=== PATIENT | male | born 1950 | race Caucasian/White ===

== ENCOUNTER → 2021-07-29 13:41 | Outpatient (BNVA) | payer MEDICARE, SELFPAY | PROVIDERS: PCP Hospitalist; Visit Provider Urology | DX: N32.0 Bladder-neck obstruction (principal) | CPT/HCPCS: 51798; 99212 ==

== ENCOUNTER 2022-01-14 14:07 | Emergency (ER) | payer MEDICARE, SELFPAY | END 2022-01-14 20:48 | disposition left against medical advice (07) | PROVIDERS: Emergency Provider Emergency Medicine; PCP Hospitalist | DX: M79.646 Pain in unspecified finger(s) (principal) ==

== ENCOUNTER 2022-07-22 10:48 | Outpatient (REF) | payer MEDICARE, SELFPAY ==
[2022-07-22 13:01] LABS: Prostate Specific Antigen 3.33 ng/mL (<0.05-4.0)
== END 2022-07-22 10:49 | disposition home or self-care (01) ==
LOC: HO.LAB 10:48
PROVIDERS: PCP Hospitalist; Visit Provider Urology
DX: Z12.5 Encounter for screening for malignant neoplasm of prostate (principal); N13.8 Other obstructive and reflux uropathy; N40.1 Benign prostatic hyperplasia with lower urinary tract symptoms
CPT/HCPCS: 36415; 84153

== ENCOUNTER → 2022-07-30 08:29 | Outpatient (BNVA) | payer MEDICARE, SELFPAY | PROVIDERS: PCP Hospitalist; Visit Provider Urology | DX: N32.0 Bladder-neck obstruction (principal); R31.29 Other microscopic hematuria | CPT/HCPCS: 51798; 99212 ==

== ENCOUNTER 2022-12-17 11:12 | Outpatient (AMB) | payer MEDICARE, SELFPAY ==
--- NOTE | 2022-12-17 11:12 | MHC.OFFVIS ---
Intake Intake Visit Reasons: PVR follow Up (Pt having issues) Intake Note: Patient is present for PSA Results: 07/22/22- PSA: 3.33 Urology Med: Tamsulosin Antibiotic Allergy: None Blood Thinner: None PVR:0 Residential Property Tax Appraiser Required: No Accompanied by: Self / Same As Patient Allergies No Known Allergies Allergy (Verified 12/17/22 11:15) Medication List - Last Reconciled 12/17/22 by Landon Kaur MD citalopram 20 mg PO DAILY terazosin 5 mg PO BEDTIME 30 days HPI HPI Comments History of Present Illness Details Chiki DISLA is a very pleasant male. He is patient of Dr Zapata. He is seen today for the following urologic conditions. - lower urinary tract symptoms - microscopic hematuria SHEKHAR 1+ No evidence of microscopic hematuria today Progressive lower urinary tract symptoms - minimal nocturia, primarily storage related with urgency Switched to 5 mg terazosin. Bladder ultrasound. Cystoscopy. Microscopic Hematuria:?No evidence of microscopic hematuria currently. ? Microscopic hematuria was diagnosed during?routine UA.? They are here for the?cystoscopy and discussion of imaging findings.? Since the last visit the patient has?continues to test postive for microscopic hematuria, has not noticed gross hematuria.? Relevant medical history for?no pertinent medical history.? Radiographic imaging:?August 2018 ultrasound normal kidneys. Enlarged prostate.? Other investigations?September 2018 cytology normal.? Cystoscopy findings?September 2018 trabeculation with bladder neck tightening.? Therapeutic plan?Continue with medications ?See in 12 months.? Lower Urinary Tract Symptoms:? Current visit is for?further evaluation of, lower urinary tract symptoms, predominate obstructive symptoms.? Current therapy tamsulosin ? PSA?06/01 2.5, 08/04 3.3 PFSH Medical History Benign prostatic hyperplasia with lower urinary tract symptoms Poor urinary stream Microscopic hematuria Review of Systems Const Denies chills and Denies fever(s) Card Reports no additional complaints and Denies syncope Resp Denies cough GI Denies abdominal pain and Denies heartburn Reports as per HPI and Denies change in libido Neuro Denies syncope Psych Denies change in libido Endo Denies change in libido Physical Exam Const General: cooperative, healthy appearing, comfortable and no acute distress Orientation/consciousness: patient oriented x3 HEENT Face and sinus: Yes normal facial exam Mouth: moist mucous membranes Neck Neck: Yes normal visual inspection, Yes full ROM and Yes trachea midline Chest Chest palpation & inspection: normal inspection of the chest Resp Effort & Inspection: normal respiratory effort, able to speak in complete sentences and no respiratory distress GI Inspection: Yes normal to inspection Back/Spine/Pelvis Cervical Spine: normal cervical lordosis Thoracic/Lumbar Spine: thoracic and lumbar spine normal to inspection Skin General skin exam: no rashes or lesions noted Neuro General: patient oriented x3, gait normal, tone normal and moves all extremities Extrem General: Yes normal to inspection and Yes capillary refill normal Office Procedures Post Void Residual Post Residual Void Post Void Residual (PVR): 0 14456-Huqd Void Residual by ultrasound Results AMB Urinalysis, Automated UA Leukoctes 0 Orly/uL Last Edit by DONNA Castillo on 12/17/22 11:24 UA Nitrite Negative Last Edit by DONNA Castillo on 12/17/22 11:24 UA Urobilinogen 0.2 mg/dL Last Edit by DONNA Castillo on 12/17/22 11:24 UA Protein 0 mg/dL Last Edit by DONNA Castillo on 12/17/22 11:24 UA pH 7.0 Last Edit by DONNA Castillo on 12/17/22 11:24 UA Blood 0 Carlos Enrique/uL Last Edit by DONNA Castillo on 12/17/22 11:24 UA Specific [place] 1.010 Last Edit by DONNA Castillo on 12/17/22 11:24 UA Ketone Negative Last Edit by DONNA Castillo on 12/17/22 11:24 UA Bilirubin 0 mg/dL Last Edit by DONNA Castillo on 12/17/22 11:24 UA Glucose 0 mg/dL Last Edit by DONNA Castillo on 12/17/22 11:24 Results Reviewed Results Reviewed: Laboratory Last Values Urine pH (Auto) 7.0 12/17/22 11:20 Specific [place] (Auto) 1.010 12/17/22 11:20 Urine Protein (Auto) 0 mg/dL 12/17/22 11:20 Glucose (UA)(Auto) 0 mg/dL 12/17/22 11:20 Urine Ketones (Auto) Negative 12/17/22 11:20 Urine Blood (Auto) 0 Carlos Enrique/uL 12/17/22 11:20 Urine Nitrite (Auto) Negative 12/17/22 11:20 Urine Bilirubin (Auto) 0 mg/dL 12/17/22 11:20 Urine Urobilinogen (Auto) 0.2 mg/dL 12/17/22 11:20 Leukocyte Esterase (Auto) 0 Orly/uL 12/17/22 11:20 Assessment & Plan Assessment & Plan (1) Bladder outlet obstruction: Code(s): N32.0 - Bladder-neck obstruction Plan Two month follow-up cysto Orders: Orders AMB Urinalysis Automated Today Z13.9 - Encounter for screening, unspecified AMB Post Void Residual by ultrasound Today N39.8 - Other specified disorders of urinary system US bladder Today N32.0 - Bladder-neck obstruction, R39.12 - Poor urinary stream Medications: New terazosin 5 mg PO BEDTIME 30 caps 1RF 30 days N32.0 - Bladder-neck obstruction, N40.1 - Benign prostatic hyperplasia with lower urinary tract symptoms, R35.0 - Frequency of micturition Discontinued tamsulosin Discontinued Reason: Doctor's Order 0.4 mg PO DAILY 90 days 90 caps 3RF Patient Instructions: Imaging studies, laboratory and physical exam results were discussed and reviewed in detail. No major barriers to patient understanding were identified. An opportunity to ask questions regarding the treatment plan was provided. All questions were answered. The patient expressed understanding and agreement with the above treatment plan. The patient is aware they should contact our office by phone for worsening of their current condition or the appearance of new urologic symptoms. Compliance is encouraged with any medications and followup testing that is ordered. It is a privilege to participate in the urologic care of your patient. If you have any questions or concerns regarding treatment for the above conditions, or other urologic issues, please do not hesitate to contact me. The office telephone contact is [phone]. This note is constructed using voice recognition software. While every effort has been made to ensure accuracy account resolution analyst errors may have been included. Yours sincerely, Dr Landon Kaur MD, HAR[facility] - Urology Providers of Expert, Compassionate Care for the Genitourinary System Coding Level of Care Code Est Pt Level 4 (20995) Diagnoses Bladder outlet obstruction N32.0 CPT Codes Post Residual Void - PVR CPT Code: 62068-Cgfd Void Residual by ultrasound ([id number])
== END 2022-12-17 12:06 | disposition home or self-care (01) ==
PROVIDERS: PCP Hospitalist; Visit Provider Urology
DX: N32.0 Bladder-neck obstruction (principal); Z13.9 Encounter for screening, unspecified
CPT/HCPCS: 99214

== ENCOUNTER → 2022-12-17 11:12 | Outpatient (BNVA) | payer MEDICARE, SELFPAY | PROVIDERS: PCP Hospitalist; Visit Provider Urology | DX: N32.0 Bladder-neck obstruction (principal) | CPT/HCPCS: 51798; 81003; 99212 ==

== ENCOUNTER 2023-01-14 12:33 | Outpatient (REF) | payer MEDICARE, SELFPAY ==
--- NOTE | ~2023-01-14 | US_ITS ---
EXAMINATION: US PELVIS LIMITED (BLADDER) CLINICAL INFORMATION: Poor urinary stream. COMPARISON: None available. TECHNIQUE: Real-time imaging of the bladder. FINDINGS: BLADDER: Well distended and normal. Bilateral ureteral jets are demonstrated. Prevoid bladder volume is 216 mL. Postvoid bladder volume is 20 mL. PROSTATE: Prostate measures 3.5 x 5.1 x 3.9 cm, volume 36.3 mL. Calculation are noted within the prostate. US/US bladder IMPRESSION: 1. Postvoid bladder volume of 20 mL with visualization of the bilateral ureteral jets. 2. Enlarged prostate measuring up to 5.1 cm with a volume of 36.3 mL. Calcifications within its body
== END 2023-01-14 12:34 | disposition home or self-care (01) ==
LOC: HO.US 12:33
PROVIDERS: PCP Hospitalist; Visit Provider Urology
DX: R39.12 Poor urinary stream (principal); N32.0 Bladder-neck obstruction
CPT/HCPCS: 76857

== ENCOUNTER 2023-07-22 08:51 | Outpatient (REF) | payer MEDICARE, SELFPAY ==
[2023-07-22 10:57] LABS: Prostate Specific Antigen 4.17 ng/mL (<0.05-4.0)
== END 2023-07-22 08:52 | disposition home or self-care (01) ==
LOC: HO.LAB 08:51
PROVIDERS: Visit Provider Urology
DX: N32.0 Bladder-neck obstruction (principal); Z12.5 Encounter for screening for malignant neoplasm of prostate
CPT/HCPCS: 36415; 84153

== ENCOUNTER 2023-07-30 08:19 | Outpatient (AMB) | payer MEDICARE, SELFPAY ==
--- NOTE | 2023-07-30 08:34 | A.OFFVIS_ITS ---
Intake Visit Reasons: 1Y PSA(set) Intake Note: Patient is present for PSA Results: PSA 4.17 Urology Med: Terazosin Antibiotic Allergy: None Blood Thinner: None PVR: 28ml's Area Supervisor Required: No Accompanied by: Self / Same As Patient Allergies No Known Allergies Allergy (Verified 07/30/23 08:58) Medication List - Last Reconciled 07/30/23 by Landon Kaur MD citalopram 20 mg PO DAILY terazosin 5 mg PO BEDTIME 90 days HPI Comments Details: Chiki DISLA is a very pleasant male. He is patient of Dr Zapata. He is seen today for the following urologic conditions. - lower urinary tract symptoms - microscopic hematuria PVR 30 cc PH 5.0 on UA Discussed protein intake Progressive lower urinary tract symptoms - minimal nocturia, primarily storage related with urgency Currently on 5 mg terazosin Slight rise in PSA Check in 6 months Microscopic Hematuria:?No evidence of microscopic hematuria currently. ? Microscopic hematuria was diagnosed during?routine UA.? They are here for the?cystoscopy and discussion of imaging findings.? Since the last visit the patient has?continues to test postive for microscopic hematuria, has not noticed gross hematuria.? Relevant medical history for?no pertinent medical history.? Radiographic imaging:?August 2018 ultrasound normal kidneys. Enlarged prostate.? - 02/04 35cc prostate ? Other investigations?September 2018 cytology normal.? Cystoscopy findings?September 2018 trabeculation with bladder neck tightening.? Therapeutic plan?Continue with medications Lower Urinary Tract Symptoms:? Current visit is for?further evaluation of, lower urinary tract symptoms, predominate obstructive symptoms.? Current therapy terazosin 5 mg ? PSA?06/01 2.5, 08/04 3.3, 08/05 4.2 [facility] Medical History Benign prostatic hyperplasia with lower urinary tract symptoms Poor urinary stream Microscopic hematuria Review of Systems Const Denies chills and Denies fever(s) Card Reports no additional complaints and Denies syncope Resp Denies cough GI Denies abdominal pain and Denies heartburn Reports as per HPI and Denies change in libido Neuro Denies syncope Psych Denies change in libido Endo Denies change in libido Physical Exam Const General: cooperative, healthy appearing, comfortable and no acute distress Orientation/consciousness: patient oriented x3 HEENT Face and sinus: Yes normal facial exam Mouth: moist mucous membranes Neck Neck: Yes normal visual inspection, Yes full ROM and Yes trachea midline Chest Chest palpation & inspection: normal inspection of the chest Resp Effort & Inspection: normal respiratory effort, able to speak in complete sentences and no respiratory distress GI Inspection: Yes normal to inspection Back/Spine/Pelvis Cervical Spine: normal cervical lordosis Thoracic/Lumbar Spine: thoracic and lumbar spine normal to inspection Skin General skin exam: no rashes or lesions noted Neuro General: patient oriented x3, gait normal, tone normal and moves all extremities Extrem General: Yes normal to inspection and Yes capillary refill normal Office Procedures Post Void Residual Post Residual Void Post Void Residual (PVR): 28 [id number] Void Residual by ultrasound Results AMB Urinalysis, Automated UA Leukoctes 0 Orly/uL Last Edit by [employer] on 07/30/23 09:00 UA Nitrite Negative Last Edit by [employer] on 07/30/23 09:00 UA Urobilinogen 0.2 mg/dL Last Edit by [employer] on 07/30/23 09:00 UA Protein 0 mg/dL Last Edit by [employer] on 07/30/23 09:00 UA pH 5.0 Last Edit by [employer] on 07/30/23 09:00 UA Blood 0 Carlos Enrique/uL Last Edit by [employer] on 07/30/23 09:00 UA Specific [place] 1.015 Last Edit by [employer] on 07/30/23 09:00 UA Ketone Negative Last Edit by [employer] on 07/30/23 09:00 UA Bilirubin 0 mg/dL Last Edit by [employer] on 07/30/23 09:00 UA Glucose 0 mg/dL Last Edit by [employer] on 07/30/23 09:00 Results Reviewed Results Reviewed: Laboratory Last Values Urine pH (Auto) 5.0 07/30/23 08:59 Specific [place] (Auto) 1.015 07/30/23 08:59 Urine Protein (Auto) 0 mg/dL 07/30/23 08:59 Glucose (UA)(Auto) 0 mg/dL 07/30/23 08:59 Urine Ketones (Auto) Negative 07/30/23 08:59 Urine Blood (Auto) 0 Carlos Enrique/uL 07/30/23 08:59 Urine Nitrite (Auto) Negative 07/30/23 08:59 Urine Bilirubin (Auto) 0 mg/dL 07/30/23 08:59 Urine Urobilinogen (Auto) 0.2 mg/dL 07/30/23 08:59 Leukocyte Esterase (Auto) 0 Orly/uL 07/30/23 08:59 Assessment & Plan Assessment & Plan (1) Elevated PSA: Code(s): R97.20 - Elevated prostate specific antigen [PSA] Category: Medical (2) Bladder outlet obstruction: Code(s): N32.0 - Bladder-neck obstruction Category: Medical Plan Six-month follow-up PSA Orders: Orders AMB Urinalysis Automated Today Z13.9 - Encounter for screening, unspecified AMB Post Void Residual by ultrasound Today N32.0 - Bladder-neck obstruction PSA,Total (Free>4and<10) 6 Months R97.20 - Elevated prostate specific antigen [PSA] Patient Instructions: Imaging studies, laboratory and physical exam results were discussed and reviewed in detail. No major barriers to patient understanding were identified. An opportunity to ask questions regarding the treatment plan was provided. All questions were answered. The patient expressed understanding and agreement with the above treatment plan. The patient is aware they should contact our office by phone for worsening of their current condition or the appearance of new urologic symptoms. Compliance is encouraged with any medications and followup testing that is ordered. It is a privilege to participate in the urologic care of your patient. If you have any questions or concerns regarding treatment for the above conditions, or other urologic issues, please do not hesitate to contact me. The office telephone contact is [phone]. This note is constructed using voice recognition software. While every effort has been made to ensure accuracy refuse and recycling worker errors may have been included. Yours sincerely, Dr Landon Kaur MD, [facility] - Urology Providers of Expert, Compassionate Care for the Genitourinary System Coding Level of Care Code Est Pt Level 3 (96496) Diagnoses Elevated PSA R97.20 Bladder outlet obstruction N32.0 CPT Codes Post Residual Void - PVR CPT Code: 09184-Wdli Void Residual by ultrasound ([id number])
== END 2023-07-30 09:06 | disposition home or self-care (01) ==
PROVIDERS: Visit Provider Urology
DX: R97.20 Elevated prostate specific antigen [PSA] (principal); N32.0 Bladder-neck obstruction; Z13.9 Encounter for screening, unspecified
CPT/HCPCS: 99213

== ENCOUNTER → 2023-07-30 08:19 | Outpatient (BNVA) | payer MEDICARE, SELFPAY | PROVIDERS: Visit Provider Urology | DX: R97.20 Elevated prostate specific antigen [PSA] (principal); N32.0 Bladder-neck obstruction | CPT/HCPCS: 51798; 81003; 99212 ==

== ENCOUNTER 2024-01-20 10:24 | Outpatient (REF) | payer MEDICARE, SELFPAY ==
[2024-01-20 12:37] LABS: Prostate Specific Antigen 5.39 ng/mL (<0.05-4.0)
== END 2024-01-20 10:25 | disposition home or self-care (01) ==
LOC: HO.LAB 10:24
PROVIDERS: PCP Hospitalist; Visit Provider Urology
DX: R97.20 Elevated prostate specific antigen [PSA] (principal); Z12.5 Encounter for screening for malignant neoplasm of prostate
CPT/HCPCS: 36415; 84153

== ENCOUNTER 2024-01-27 08:40 | Outpatient (AMB) | payer MEDICARE, SELFPAY ==
--- NOTE | 2024-01-27 08:45 | MHC.OFFVIS ---
Intake Visit Reasons: 6m/PSA(set)Elevated Intake Note: Patient is present for 6m/PSA Urology Medication:TERAZOSIN Antibiotic Allergy:NONE Blood Thinner:NONE Nail Polish Brush Machine Feeder Required: No Allergies No Known Allergies Allergy (Verified 01/27/24 08:46) HPI Comments Details: Chiki DISLA is a very pleasant male. He is patient of Dr Zapata. He is seen today for the following urologic conditions. - lower urinary tract symptoms - microscopic hematuria - rising PSA PSA continues to rise Given prostate size would recommend biopsy Discussed alternative options in including urine DNA and prostate MRI He would like to try to get a prostate MRI first Did discuss insurance care for his mother who was turning 89 UA normal Microscopic Hematuria:?No evidence of microscopic hematuria currently. ? Microscopic hematuria was diagnosed during?routine UA.? They are here for the?cystoscopy and discussion of imaging findings.? Since the last visit the patient has?continues to test postive for microscopic hematuria, has not noticed gross hematuria.? Relevant medical history for?no pertinent medical history.? Radiographic imaging:?August 2018 ultrasound normal kidneys. Enlarged prostate.? - 02/04 35cc prostate ? Other investigations?September 2018 cytology normal.? Cystoscopy findings?September 2018 trabeculation with bladder neck tightening.? Therapeutic plan?Continue with medications Lower Urinary Tract Symptoms:? Current visit is for?further evaluation of, lower urinary tract symptoms, predominate obstructive symptoms.? Current therapy terazosin 5 mg ? PSA?06/01 2.5, 08/04 3.3, 08/05 4.2, 02/05 5.4 [facility] Medical History Benign prostatic hyperplasia with lower urinary tract symptoms Poor urinary stream Microscopic hematuria Review of Systems Const Denies chills and Denies fever(s) Card Reports no additional complaints and Denies syncope Resp Denies cough GI Denies abdominal pain and Denies heartburn Reports as per HPI and Denies change in libido Neuro Denies syncope Psych Denies change in libido Endo Denies change in libido Physical Exam Const General: cooperative, healthy appearing, comfortable and no acute distress Orientation/consciousness: patient oriented x3 HEENT Face and sinus: Yes normal facial exam Mouth: moist mucous membranes Neck Neck: Yes normal visual inspection, Yes full ROM and Yes trachea midline Chest Chest palpation & inspection: normal inspection of the chest Resp Effort & Inspection: normal respiratory effort, able to speak in complete sentences and no respiratory distress GI Inspection: Yes normal to inspection Back/Spine/Pelvis Cervical Spine: normal cervical lordosis Thoracic/Lumbar Spine: thoracic and lumbar spine normal to inspection Skin General skin exam: no rashes or lesions noted Neuro General: patient oriented x3, gait normal, tone normal and moves all extremities Extrem General: Yes normal to inspection and Yes capillary refill normal Results AMB Urinalysis, Automated UA Leukoctes 0 Orly/uL Last Edit by EYAL Verdin on 01/27/24 09:34 UA Nitrite Negative Last Edit by EYAL Verdin on 01/27/24 09:34 UA Urobilinogen 0.2 mg/dL Last Edit by EYAL Verdin on 01/27/24 09:34 UA Protein 0 mg/dL Last Edit by EYAL Verdin on 01/27/24 09:34 UA pH 5.5 Last Edit by EYAL Verdin on 01/27/24 09:34 UA Blood 0 Carlos Enrique/uL Last Edit by EYAL Verdin on 01/27/24 09:34 UA Specific [place] 1.020 Last Edit by EYAL Verdin on 01/27/24 09:34 UA Ketone Negative Last Edit by EYAL Verdin on 01/27/24 09:34 UA Bilirubin 0 mg/dL Last Edit by EYAL Verdin on 01/27/24 09:34 UA Glucose 0 mg/dL Last Edit by EYAL Verdin on 01/27/24 09:34 Results Reviewed Results Reviewed: Laboratory Last Values Urine pH (Auto) 5.5 01/27/24 09:34 Specific [place] (Auto) 1.020 01/27/24 09:34 Urine Protein (Auto) 0 mg/dL 01/27/24 09:34 Glucose (UA)(Auto) 0 mg/dL 01/27/24 09:34 Urine Ketones (Auto) Negative 01/27/24 09:34 Urine Blood (Auto) 0 Carlos Enrique/uL 01/27/24 09:34 Urine Nitrite (Auto) Negative 01/27/24 09:34 Urine Bilirubin (Auto) 0 mg/dL 01/27/24 09:34 Urine Urobilinogen (Auto) 0.2 mg/dL 01/27/24 09:34 Leukocyte Esterase (Auto) 0 Orly/uL 01/27/24 09:34 Assessment & Plan Assessment & Plan (1) Elevated PSA: Code(s): R97.20 - Elevated prostate specific antigen [PSA] Category: Medical (2) Bladder outlet obstruction: Code(s): N32.0 - Bladder-neck obstruction Category: Medical Plan Prostate MRI for rising PSA Orders: Orders Prostate Specific Antigen 01/20/24 R97.20 - Elevated prostate specific antigen [PSA] AMB Urinalysis Automated Today Z13.9 - Encounter for screening, unspecified MR Prostate wo/w con Today R97.20 - Elevated prostate specific antigen [PSA] Patient Instructions: Imaging studies, laboratory and physical exam results were discussed and reviewed in detail. No major barriers to patient understanding were identified. An opportunity to ask questions regarding the treatment plan was provided. All questions were answered. The patient expressed understanding and agreement with the above treatment plan. The patient is aware they should contact our office by phone for worsening of their current condition or the appearance of new urologic symptoms. Compliance is encouraged with any medications and followup testing that is ordered. It is a privilege to participate in the urologic care of your patient. If you have any questions or concerns regarding treatment for the above conditions, or other urologic issues, please do not hesitate to contact me. The office telephone contact is [phone]. This note is constructed using voice recognition software. While every effort has been made to ensure accuracy flatlock sewing machine operator errors may have been included. Yours sincerely, Dr Landon Kaur MD, HAR[facility] - Urology Providers of Expert, Compassionate Care for the Genitourinary System Coding Level of Care Code Est Pt Level 3 (72434) Diagnoses Elevated PSA R97.20 Bladder outlet obstruction N32.0
== END 2024-01-27 08:56 | disposition home or self-care (01) ==
PROVIDERS: PCP Hospitalist; Visit Provider Urology
DX: R97.20 Elevated prostate specific antigen [PSA] (principal); N32.0 Bladder-neck obstruction; Z13.9 Encounter for screening, unspecified
CPT/HCPCS: 99213

== ENCOUNTER → 2024-01-27 08:40 | Outpatient (BNVA) | payer MEDICARE, SELFPAY | PROVIDERS: PCP Hospitalist; Visit Provider Urology | DX: R97.20 Elevated prostate specific antigen [PSA] (principal); N32.0 Bladder-neck obstruction | CPT/HCPCS: 81003; 99212 ==

== ENCOUNTER 2024-02-25 09:11 | Outpatient (AMB) | payer MEDICARE, SELFPAY ==
--- NOTE | 2024-02-25 09:12 | A.OFFVIS_ITS ---
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 He is patient of Dr Zapata. He is seen today for the following urologic conditions. - lower urinary tract symptoms - microscopic hematuria - rising PSA Telemedicine Evaluation 15 min Consultation [employer] [facility] Video Completed prostate MRI 02/05 prostate MRI T3 50 g prostate with BPH with whorls. Evidence suggesting prostatitis. Right anterior mid gland 8 mm PI-RADS 3, right lateral apex 6 mm PI-RADS 4 Based on imaging there is a single indeterminate lesion plus a small suspicious lesion. Suspicious lesion does not rise to size criteria for biopsy. Continue interval surveillance of PSA Microscopic Hematuria:?No evidence of microscopic hematuria currently. ? Microscopic hematuria was diagnosed during?routine UA.? They are here for the?cystoscopy and discussion of imaging findings.? Since the last visit the patient has?continues to test postive for microscopic hematuria, has not noticed gross hematuria.? Relevant medical history for?no pertinent medical history.? Radiographic imaging:?August 2018 ultrasound normal kidneys. Enlarged prostate.? - 02/04 35cc prostate ? Other investigations?September 2018 cytology normal.? Cystoscopy findings?September 2018 trabeculation with bladder neck tightening.? Therapeutic plan?Continue with medications Lower Urinary Tract Symptoms:? Current visit is for?further evaluation of, lower urinary tract symptoms, predominate obstructive symptoms.? Current therapy terazosin 5 mg ? PSA?06/01 2.5, 08/04 3.3, 08/05 4.2, 02/05 5.4 - 02/05 prostate MRI T3 50 g prostate with BPH with whorls. Evidence suggesting prostatitis. Right anterior mid gland 8 mm PI-RADS 3, right lateral apex 6 mm PI-RADS 4 [facility] Medical History Benign prostatic hyperplasia with lower urinary tract symptoms Poor urinary stream Microscopic hematuria Review of Systems Const All systems reviewed & are unremarkable except as noted in HPI and below Reports no additional complaints Resp Reports no additional complaints GI Reports no additional complaints Reports as per HPI Musc Reports no additional complaints Physical Exam Telemedicine evaluation Appropriate responses Regular breathing rate and rhythm HEENT Head: Yes normal to inspection Ears: hearing grossly normal bilaterally Eyes General: appearance normal, both eyes and all related structures Neck Neck: Yes normal visual inspection Chest Chest palpation & inspection: normal inspection of the chest Resp Effort & Inspection: normal respiratory effort and able to speak in complete sentences Telehealth Telehealth Telehealth Platform: Sensitive Object Location of provider rendering services: practice address Location of patient: address on file Patient Identification confirmed using: Name, : Yes Telehealth method: video Patient verbally consented to treatment: Yes Patient verbally consented to billing insurance company: Yes Patient informed of any privacy concerns related to visit: Yes Minutes spent on Phone/Video with Pt.: 15 Assessment & Plan Assessment & Plan (1) Bladder outlet obstruction: Code(s): N32.0 - Bladder-neck obstruction Category: Medical (2) Elevated PSA: Code(s): R97.20 - Elevated prostate specific antigen [PSA] Category: Medical Plan Six-month follow-up PSA Orders: Orders PSA,Total (Free>4and<10) 6 Months R97.20 - Elevated prostate specific antigen [PSA] Patient Instructions: Imaging studies, laboratory and physical exam results were discussed and reviewed in detail. No major barriers to patient understanding were identified. An opportunity to ask questions regarding the treatment plan was provided. All questions were answered. The patient expressed understanding and agreement with the above treatment plan. The patient is aware they should contact our office by phone for worsening of their current condition or the appearance of new urologic symptoms. Compliance is encouraged with any medications and followup testing that is ordered. It is a privilege to participate in the urologic care of your patient. If you have any questions or concerns regarding treatment for the above conditions, or other urologic issues, please do not hesitate to contact me. The office telephone contact is [phone]. This note is constructed using voice recognition software. While every effort has been made to ensure accuracy pick pulling machine tender errors may have been included. Yours sincerely, Dr Landon Kaur MD, [facility] - Urology Providers of Expert, Compassionate Care for the Genitourinary System Coding Level of Care Code Tele Est Pt Level 3 (20584) Diagnoses Bladder outlet obstruction N32.0 Elevated PSA R97.20
--- OUTSIDE RECORDS SUMMARY | 2024-02-25 09:14 | XMS_ITS ---
Author Organization [facility] Address [address] [place] [address] Care Team Providers Care Director Public Name Role Phone SIENA ALBERT Primary Care Provider Allergies No Known Allergies REASON FOR VISIT AWV Medications Medication SIG (Take, Route, Frequency, Duration) Notes Start Date End Date Status Citalopram Hydrobromide 20 MG TAKE 1 TABLET BY MOUTH EVERY DAY FOR 30 DAYS for 90 Active Terazosin HCl 1 MG 1 capsule at bedtime Orally Once a day Active Melatonin 10 MG 1 tablet at bedtime as needed Orally Once a day Active Red Yeast Rice 250 mg-two in the moring, 3 in the evening Active Social History Tobacco Use: Social History Observation Description Date Details (start date - stop date) Never Smoker NA - NA Tobacco Use/Smoking Question Answer Notes Are you a nonsmoker Alcohol Screen (Audit-C) Question Answer Notes Did you have a drink contain ing alcohol in the past year? Yes How often did you have a dri nk containing alcohol in the past year? 4 or more times a week (4 points) How many drinks did you have on a typical day when you were drinking in the past year? 1 or 2 drinks (0 point) How often did you have 6 or more drinks on one occasion in the past year? Never (0 point) Points 4 Interpretation Positive Vital Signs Temperature 97.7 degrees Fahrenheit 01/13/20 24 Oximetry 97 % 01/13/2024 Heart Rate 56 /min 01/13/2024 Blood pressure systolic 123 mm Hg 01/13/20 24 Blood pressure diastolic 70 mm Hg 024 Weight 181.6 lbs 01/13/2024 BMI 26.05 kg/m2 01/13/2024 Height 70 in 01/13/2024 Encounters Encounter Location Date Provider Diagnosis [facility] [address] [place] [address] 01/13/2024 SIENA ALBERT Encounter for genera l adult medical examination without abnormal findings Z00.00 ; Mixed hyperlipidemia E78.2 ; Benign prostatic hyperplasia with lower urinary tract symptoms N40.1 and Impaired fasting glucose R73.01 Assessments Encounter Date Diagnosis (ICD Code) Assessment Notes Treatment Notes Treatment Clinical Notes Section Notes 01/13/2024 Encounter for general adult medical examination without abnormal findings (ICD-10 - Z00.00) Mr. Disla is a 72 year old gentleman with BPH, generalized anxiety disorder, insomnia and mixed hyperlipidemia here for annual physical. Plan is as follows: Hyperlipidemia. total cholesterol and LDL cholesterol are above the cut off. He is currently on red yeast rice. Recheck lipid panel. EKG is normal sinus rhythm at 50 bpm with no acute ST or T wave changes, and no bundle branch blocks, normal intervals BPH. Continue Terazosin 1 MG daily plan he follows up with urologist Dr. Lindsay. Impaired fasting glucose. A1c 5.7. check A1c. Dietary restrictions, regimental exercise and weight loss advised. Eye screening. He sees his machine preservative filler regularly. Dental screening. He sees dentist regularly. Skin screening. No skin issues at this point. Colon cancer screening. He is up to date on his colonoscopy. Immunizations. Declines vaccines. Advance directive. He is on full code and his HCP is Scar Vázquez Blood work ordered Screening blood work before next appointment. General health concerns discussed with patient. 01/13/2024 Mixed hyperlipidemia (ICD-10 - E78.2) Mr. Disla is a 72 year old gentleman with BPH, generalized anxiety disorder, insomnia and mixed hyperlipidemia here for annual physical. Plan is as follows: Hyperlipidemia. total cholesterol and LDL cholesterol are above the cut off. He is currently on red yeast rice. Recheck lipid panel. EKG is normal sinus rhythm at 50 bpm with no acute ST or T wave changes, and no bundle branch blocks, normal intervals BPH. Continue Terazosin 1 MG daily plan he follows up with urologist Dr. Lindsay. Impaired fasting glucose. A1c 5.7. check A1c. Dietary restrictions, regimental exercise and weight loss advised. Eye screening. He sees his machine preservative filler regularly. Dental screening. He sees dentist regularly. Skin screening. No skin issues at this point. Colon cancer screening. He is up to date on his colonoscopy. Immunizations. Declines vaccines. Advance directive. He is on full code and his HCP is Scar Vázquez Blood work ordered Screening blood work before next appointment. General health concerns discussed with patient. 01/13/2024 Benign prostatic hyperplasia with lower urinary tract symptoms (ICD-10 - N40.1) Mr. Disla is a 72 year old gentleman with BPH, generalized anxiety disorder, insomnia and mixed hyperlipidemia here for annual physical. Plan is as follows: Hyperlipidemia. total cholesterol and LDL cholesterol are above the cut off. He is currently on red yeast rice. Recheck lipid panel. EKG is normal sinus rhythm at 50 bpm with no acute ST or T wave changes, and no bundle branch blocks, normal intervals BPH. Continue Terazosin 1 MG daily plan he follows up with urologist Dr. Lindsay. Impaired fasting glucose. A1c 5.7. check A1c. Dietary restrictions, regimental exercise and weight loss advised. Eye screening. He sees his machine preservative filler regularly. Dental screening. He sees dentist regularly. Skin screening. No skin issues at this point. Colon cancer screening. He is up to date on his colonoscopy. Immunizations. Declines vaccines. Advance directive. He is on full code and his HCP is Scar Vázquez Blood work ordered Screening blood work before next appointment. General health concerns discussed with patient. 01/13/2024 Impaired fasting glucose (ICD-10 - R73.01) Mr. Disla is a 72 year old gentleman with BPH, generalized anxiety disorder, insomnia and mixed hyperlipidemia here for annual physical. Plan is as follows: Hyperlipidemia. total cholesterol and LDL cholesterol are above the cut off. He is currently on red yeast rice. Recheck lipid panel. EKG is normal sinus rhythm at 50 bpm with no acute ST or T wave changes, and no bundle branch blocks, normal intervals BPH. Continue Terazosin 1 MG daily plan he follows up with urologist Dr. Lindsay. Impaired fasting glucose. A1c 5.7. check A1c. Dietary restrictions, regimental exercise and weight loss advised. Eye screening. He sees his machine preservative filler regularly. Dental screening. He sees dentist regularly. Skin screening. No skin issues at this point. Colon cancer screening. He is up to date on his colonoscopy. Immunizations. Declines vaccines. Advance directive. He is on full code and his HCP is Scar Vázquez Blood work ordered Screening blood work before next appointment. General health concerns discussed with patient. Plan Of Treatment Next Appt Details Follow Up: 1 Year- Guillermina CORTEZ n: Provider Name:SIENA ALBERT , 01/15/2025 08:00:00 AM, [address] [place] [address], [id number], Progress Notes * PB DISLA PDOB:1950 (73 yo M)Acc No.[id number]:01/13/2024 Progress Note Patient:?PB DISLA P Provider:?SIENA ALBERT MD :1950???Age:73 Y???Sex:Male Jerardo e:01/13/2024 Address:[address] [place] [address] [id number] Subjective: * Chief Complaints: * ???AWV * HPI: ???Patient Care Team:?-?No Providers on Record.?Medicare Annual Visit:?Type of Visit?-?Subsequent Annual Wellness Visit ?Language or Communication barrier addressed?-?Yes ?Health Risk Assessment?DEMOGRAPHICS?- ?- How old are [age]??[age] ?- How would you best describe your ethnicity??Non- White ?- How would you describe your marital status?- How would you describe your employment status??Retired ?- How many children do you have??None ?RISK ASSESSMENT?- ?- Do you currently use tobacco products??No ?- Have you ever used tobacco products??No ?- What type of tobacco do you use or have you used??__ ?- (If cigarette smoker) How long have you smoked??__ ?- (If cigarette smoker) How many cigarettes do you smoke per day??__ ?- How many alcoholic beverages (i.e. 1oz hard liquor, one glass of wine, one bottle of beer) do you drink daily, on average??None Glass of wine everyday ?- Have you ever felt the need to cut down on drinking??No ?- Have people annoyed you with criticism of your drinking??No ?- Do you or have you felt guilty for drinking??No ?- Have you ever felt the need to drink first thing in the morning to steady your nerves or to get rid of a hangover??No ?- How often do you exercise??Never physical activity ?- How vigorously can you exercise??Minimally ?- How often do you use seatbelts??Always ?- In the past month, how often have you had sex??__ ?- Do you have any significant difficulties or dysfunction during sex??No, never ?- How many partners do you have??__ ?- How often do you experience pain with sex??Never ?- How often do you use condoms during sex??Always ?MENTAL HEALTH ASSESSMENT?- ?- In the past two weeks, how often have you felt depressed, down or hopeless??Never ?- In the past month, how often have you felt anxious or stressed??Never ?- What is your average level of daily stress??None ?- In the past two weeks, how often have you felt a lack of pleasure or interest in doing things??Never ?- In the past two weeks, how often have you had difficulty falling asleep or episodes of sleeping too long??Never ?- In the past two weeks, how often have you had a lack of energy??Never ?- In the past two weeks, how often have you had feelings of being better off or thoughts of harming yourself??Never ?- Have you ever attempted to harm yourself??No ?GENERAL HEALTH/PAIN ASSESSMENT?- ?- In the past month, how often did you experience pain??Never ?- In the past month, how much has pain affected your ability to work??Not at all ?- In the past month, how much has pain affected your ability to walk??Not at all ?- In the past month, how much has pain affected your relationship with other people??Not at all ?- On a scale of 1-10, how bad would you rate your average daily pain??No pain ?- How would you describe the ease with which you can prepare your own food??Very easy ?- How would you describe the ease with which you can bathe or clean yourself??Very easy ?- How would you describe the ease with which you can dress yourself??Very easy ?- How hard is it to use the toilet by yourself??Not hard at all ?- How would you describe the ease with which you can do your own shopping??Very easy ?- How would you describe the ease with which you can get around your house??Very easy ?- How would you describe your ability to pay your bills??Very good ?- How would you describe your ability to plan your daily and monthly budgets??Very good ?- How would you describe your ability to do routine housework??Very good ?HOME SAFETY/ASSISTANCE?- ?- Do you feel like you are safe in your current home??Yes ?- How many times have you fallen in your home??Never ?- How much would you need to change your living circumstances to feel safe??Not at all ?- Do you feel that living somewhere else would be good for you??No ?- How much help do you feel you need at home??None at all ?- How much does your family help with daily or routine chores??Not at all ?Immunization Status addressed?-?Yes ?Depression Screening?-?No ?Vision Screening?-?No ?Hearing Screening?-?No ?Fall Risk and Home Safety?-?Negative, no falls in the past year, no difficulty walking, or getting out of bed or chair ?Medication evaluation and reconcilliation performed?Yes ?Vision screening recommended?Yes ?Literature offered to the patient?Yes ?Referrals?physical therapy offered for gait balance and mobility evaluation, fall prevention home evauation offered, DEXA screening offered ?Get Up and Go Evaluation?under 20 seconds ?Psychosocial Risks?-?No overt psychosocial risks shown, observed, or mentioned ?Behavioral Risks?-?Patient seems very well adjusted and no behavorial issues noted ?Activities of daily living?-?Not impaired ?Cognitive Screening?-?No overt cognitive deficiency is apparent by direct observation ???Depression Screening:?PHQ-9?Little interest or pleasure in doing things?Not at all ?Feeling down, depressed, or hopeless?Several days ?Trouble falling or staying asleep, or sleeping too much?Several days ?Feeling tired or having little energy?Several days ?Poor appetite or overeating?Not at all ?Feeling bad about yourself or that you are a failure, or have let yourself or your family down?Not at all ?Trouble concentrating on things, such as reading the newspaper or watching television?Several days ?Moving or speaking so slowly that other people could have noticed; or the opposite, being so fidgety or restless that you have been moving around a lot more than usual?Not at all ?Thoughts that you would be better off or of hurting yourself in some way?Not at all ?Total Score?4 ?Interpretation?Minimal Depression * ROS:?General/Constitutional:?Overall health?Good.?Change in appetite?denies.?Chills?denies.?Fever?denies.?Night sweats?denies.?Sleep disturbance?denies.?Weight gain?denies.?Weight loss?denies.?Neurologic:?Difficulty speaking?denies.?Dizziness?denies.?Gait abnormality?denies.?Headache?denies.?Loss of strength?denies.?Memory loss?denies.?Seizures?denies.?Tingling/Numbness?denies .?Ophthalmologic:?Blurred vision?denies.?Discharge?denies.?Dry eye?denies.?Red eye?denies.?ENT:?Change in Voice?Denies.?Cold Symptoms?Denies.?Cough?Denies.?Dizziness?Denies.?Nasal Congestion?Denies.?Otalgia?Denies.?postnasal drip?Denies.?Blocked ear?denies.?Nosebleed?denies.?Snoring?denies.?Cardiovascular:?Diaphoresis?Denies.?Pedal Edema?Denies.?PND (Paroxsymal nocturnal dyspnea)?Denies.?Chest pain?denies.?Difficulty laying flat?denies.?Dyspnea on exertion?denies.?Heart murmur?denies.?Orthopnea?denies.?Respiratory:?Snoring?denies.?Asthma?denies.?Cough?denies.?Shortness of breath with exertion?denies.?Sputum production?denies.?Wheezing?denies.?Gastrointestinal:?Change in bowel habits?denies.?Constipation?denies.?Decreased appetite?denies.?Diarrhea?denies.?Heartburn?denies.?Nausea?denies.?Vomiting?js es.?Musculoskeletal:?tingling/numbness?Denies.?myalgias?Denies.?Joint Swelling?Denies.?extremeties?normal.?Arthritis?denies.?Back problems?denies.?Carpal tunnel?denies.?Joint stiffness?denies.?Muscle aches?denies.?Endocrine:?Bowel Changes?Denies.?Breast Discharge?Denies.?poor libido?Denies.?Cold intolerance?denies.?Excessive sweating?denies.?Excessive thirst?denies.?Frequent urination?denies.?Thyroid problems?denies.?Skin:?Bruising?Denies.?Eczema?denies.?Hair changes?denies.?Rash?denies.?Skin lesion(s)?denies.?Psychiatric:?Anxiety?denies.?Depressed mood?denies.?Difficulty sleeping?denies.?Nervous breakdown?denies.?Substance abuse?denies.?Urology:?abnormal menstrual bleeding?denies.?blood in urine?denies.?burning on urination?denies.?difficulty urinating?denies.?discharge?denies.?dysuria?denies.? * Medical History:? * Surgical History:?appendecto my Rt Ankle surgery cyst removed abdomen * Hospitalization/Major Diagno stic Procedure:? * Family History:?Father: dece ased, diagnosed with Stroke.?Paternal Grand Father: diagnosed with Hypertension.?Maternal Grand Mother: diagnosed with Diabetes.? * Social History:?Tobacco Use:?Tobacco Use/Smoking?Are you a?nonsmoker ???Drugs/Alcohol:?Alcohol Screen (Audit-C)?Did you have a drink containing alcohol in the past year??Yes ?How often did you have a drink containing alcohol in the past year??4 or more times a week (4 points) ?How many drinks did you have on a typical day when you were drinking in the past year??1 or 2 drinks (0 point) ?How often did you have 6 or more drinks on one occasion in the past year??Never (0 point) ?Points?4 ?Interpretation?Positive ?Do you smoke marijuana?: Admits. once or 2 times a week. ?Do you drink alcohol?: yes?.?Miscellaneous:?Exercise: none. Physically active. ?Living with: significant other. ?Marital status: in relationship with female partner. ?Occupation: Works part-time. * Medications:?TakingTerazosin HCl 1 MG Capsule 1 capsule at bedtime Orally Once a day Melatonin 10 MG Tablet 1 tablet at bedtime as needed Orally Once a day Red Yeast Rice , Notes to Pharmacist: 250 mg-two in the moring, 3 in the eveningCitalopram Hydrobromide 20 MG Tablet TAKE 1 TABLET BY MOUTH EVERY DAY FOR 30 DAYS Medication List reviewed and reconciled with the patientTaking Terazosin HCl 1 MG Capsule 1 capsule at bedtime Orally Once a day Taking Melatonin 10 MG Tablet 1 tablet at bedtime as needed Orally Once a day Taking Red Yeast Rice , Notes to Pharmacist: 250 mg-two in the moring, 3 in the eveningTaking Citalopram Hydrobromide 20 MG Tablet TAKE 1 TABLET BY MOUTH EVERY DAY FOR 30 DAYS Medication List reviewed and reconciled with the patient * Allergies:?N.K.D.A.no[Allerg ies Verified] Objective: * Vitals:?Temp:97.7F, Oxygen s at %:97%, HR:56/min, BP: 132/86 mm Hg,123/70mm Hg, Wt:181.6lbs, BMI:26.05Index, Ht: 70 in. * ???Past Orders: Lab:HEMOGLOBIN A1C WITH EST GLUCOSE * Collection Date 01/21/2023 02/02/2022 Collection Time 09:48 AM 09:39 AM Order Date 01/21/2023 02/02/2022 HEMOGLOBIN A1C 5.7?H (Ref Range: (4.0-5.6) %) 5.7?H (Ref Range: (4.0-5.6) %) ESTIMATE AVERAGE GLUCOSE 117 (Ref Range: MG/DL) 117 (Ref Range: MG/DL) ???Lab:LYME AB W/REFLEX (Order Date - 02/02/2022) (Collection Date & Time - 02/02/2022 09:41 AM)?ValueReference Range?LYME AB W/REFLEXNEGATIVE (NEG) - ???Lab:COMPREHENSIVE METABOLIC PANEL (Order Date - 01/21/2023) (Collection Date & Time - 01/21/2023 09:48 AM)?ValueReference Range?ALBUMIN4.1(3.4- 4.8) - GM/DL?ALK PHOS53(40-129) - U/L?BILIRUBIN,TOTAL0.4(0-1.2) - MG/DL?CALCIUM9.2(8.6-10.5) - MG/DL?[id number](22-29) - MMOL/L ?ISTUGYHY282E(98-107) - MMOL/L?EST GFR NON OCCRLRDX03- ML/MIN/1.73 M2?CREATININE1.1(0.7-1.2) - MG/DL?ANION GAP9(4-17) - ?UUOQNOH852Q(70-99) - MG/DL?AST18(0-40) - U/L?ALT12(0-41) - U/L?POTASSIUM4.7(3.6-5.2) - MMOL/L?QNDRZN937(133-145) - MMOL/L ?TOTAL PROTEIN6.5(6.2-8.2) - GM/DL?BUN22(8-23) - MG/DL?AG RATIO1.7- ???Lab:LIPID PANEL (Order Date - 01/21/2023) (Collection Date & Time - 01/21/2023 09:48 AM)?ValueReference Range?LDL CHOLESTEROL, [id number](0-130) - MG/DL?CHOLESTEROL, [id number](<200) - MG/DL ?HDL CHOL59(>39) - MG/DL?NON HDL CHOLESTEROL (CALC)148(<160) - MG/DL?TPNBEWKQLKRL71(<150) - MG/DL * Examination: ???General Examination: ?Psychiatry?Normal.?GENERAL APPEARANCE:?Well developed, well nourished, in no acute distress.?MUSCULOSKELETAL:?Normal.?HEAD:?Normocephalic, atraumatic.?EYES:?Pupils equal, round, reactive to light and accommodation, sclera non-icteric.?EARS:?Normal.?ORAL CAVITY:?Normal.?THROAT:?Clear.?OROPHARYNX?Normal.?SINUSES?Normal.?NECK/THYROID:?Neck supple, full range of motion, no cervical lymphadenopathy.?SKIN:?Warm and dry, no suspicious lesions.?.?HEART:?Normal.?LUNGS:?Normal.?BREASTS:?__.?ABDOMEN:?Soft, nontender, nondistended, bowel sounds present, normal.?EXTREMITIES:?Normal.?PERIPHERAL PULSES:?Normal.?NEUROLOGIC:?Nonfocal,? appropriate?motor strength normal upper and lower extremities, sensory exam intact.?FEMALE GENITOURINARY:?__.?MALE GENITOURINARY:?follow-up with Dr Lindsay.?PODIATRIC:?tinea?unguium,?first?great?toe.?[employer]? .? Assessment: * Assessment: 1.?Encounter for general hipolito lt medical examination without abnormal findings - Z00.00 (Primary)???2.?Mixed hyperlipidemia - E78.2???3.?Benign prostatic hyperplasia with lower urinary tract symptoms - N40.1???4.?Impaired fasting glucose - R73.01??? Mr. Disla is a 72 year old ge ntleman with BPH, generalized anxiety disorder, insomnia and mixed hyperlipidemia here for annual physical. Plan is as follows: Hyperlipidemia. total cholesterol and LDL cholesterol are above the cut off.? He is currently on red yeast rice.? Recheck lipid panel. EKG is normal sinus rhythm at 50 bpm with no acute ST or T wave changes, and no bundle branch blocks, normal intervals BPH. Continue Terazosin 1 MG daily plan he follows up with urologist Dr. Lindsay. Impaired fasting glucose. A1c 5.7. check A1c. Dietary restrictions, regimental exercise and weight loss advised.? Eye screening. He sees his machine preservative filler regularly. Dental screening. He sees dentist regularly. Skin screening. No skin issues at this point. Colon cancer screening. He is up to date on his colonoscopy. Immunizations. Declines vaccines. Advance directive. He is on full code and his HCP is Scar Vázquez Blood work ordered Screening blood work before next appointment. General health concerns discussed with patient. Plan: * Treatment: 2.?Mixed hyperlipidemia?LAB: Lipid Panel-[id number] (Ordered for 01/13/2024) 3.?Impaired fasting glucose?LAB: Hemoglobin [id number] (Ordered for 01/13/2024) * Procedure Codes:?3078F DIAST BP < 80 MM [id number] SYST BP LT 130 MM [id number] ANNUAL WELLNESS VST; PPS SUBSQT [id number] ELECTROCARDIOGRAM, COMPLETE * Preventive Medicine:? ??YOUR PREVENTIVE WELLNESS PLAN:?BMI, Height, and Weight:?The Recommended Frequency is:?Annually ?Blood Pressure:?The Recommended Frequency is:?Every 2 years, if BP </= 120/80 mm Hg, Annually, if BP >120-139/80-89 mm Hg ?Vision:?The Recommended Frequency is:?Every 3 years up to age 40, Every 2 years aged 40+ ?Abdominal Aortic Aneurysm:?The Recommended Frequency is:?Once, between the age range of 65-75 and for those who have smoked 100+ cigarettes in lifetime ?Cholesterol Testing:?The Recommended Frequency is:?Regularly beginning at age 20 with risk factors ?Diabetes Screening:?The Recommended Frequency is:?With a sustained BP >/= 135/80 mm Hg ?Colorectal Cancer Screening:?The Recommended Frequency is:?Annually, Fecal Occult Blood Stool (FOBS), Every 5 years, Sigmoidoscopy with FOBS, Every 10 years, Colonoscopy ?Prostate Cancer Screening (Digital Rectal Exam [SHEKHAR]/Prostate Specific Antigen [PSA]):?The Recommended Frequency is:?Annually, age 50 or older ?Sexually Transmitted Diseases (STDs):?The Recommended Frequency is:?As necessary for those with risk factors ?Depression Screening:?The Recommended Frequency is:?As necessary for those with risk factors ?Alcohol Misuse Screening:?The Recommended Frequency is:?As necessary for those with risk factors ?Pneumococcal (Pneumonia) Vaccine:?The Recommended Frequency is:?1-2 doses up to age 64, 1 dose age 65+ ?Influenza (Flu) Vaccine:?The Recommended Frequency is:?Annually ?Other:?____.?Major Risk Factors:?Your Major Risk Factors Include:?Diabetes, Fall risk, Hypertension, Obesity, Smoking use, Other ?Recommendations For Improvement?The recommendations are:?Diet, Exercise, Tobacco cessation, Weight management, Other ?Additional Resources Included:?follow-up instructions, handouts, referrals.?Declines all vaccines Colonoscopy- 2020 ?This plan was discussed, printed, and handed to patient. * Follow Up:?1 Year- AW * * Sign off status: Completed true * Provider:?SIENA ALBERT MD Date:?01/12 Generated for iXn upton/Jelani/eTransmitting on:?02/25/2024 09:13 AM EST History and Physical Notes * HPI (History of Present Illness) Category Sub-Category Detail Notes Category Not es Depression Screening PHQ-9 Little inte rest or pleasure in doing things: Not at all Feeling down, depressed, or hopeless: Se veral days Trouble falling or staying asleep, or sl eeping too much: Several days Feeling tired or having little energy: S everal days Poor appetite or overeating: Not at all Feeling bad about yourself o r that you are a failure, or have let yourself or your family down: Not at all Trouble concentrating on thi ngs, such as reading the newspaper or watching television: Several days Moving or speaking so slowly that other people could have noticed; or the opposite, being so fidgety or restless that you have been moving around a lot more than usual: Not at all Thoughts that you would be b kamille off or of hurting yourself in some way: Not at all Total Score: 4 Interpretation: Minimal Depression Medicare Annual Visit Type of Visit -: Subsequent Annual [facility] Visit Language or Communication barrier addressed -: Y es Health Risk Assessment DEMOGRAPHICS: - - How old [age]?: [age] - How would you best describ e your ethnicity?: Non- White - How would you describe your marital st atus?: - How would you describe your employment status?: Retired - How many children do you have?: None RISK ASSESSMENT: - - Do you currently use tobacco products? : No - Have you ever used tobacco products?: No - What type of tobacco do you use or hav e you used?: __ - (If cigarette smoker) How long have yo u smoked?: __ - (If cigarette smoker) How many cigarettes do you smoke per day?: __ - How many alcoholic beverag es (i.e. 1oz hard liquor, one glass of wine, one bottle of beer) do you drink daily, on average?: None Glass of wine everyday - Have you ever felt the need to cut eltno n on drinking?: No - Have people annoyed you with criticism of your drinking?: No - Do you or have you felt guilty for dri nking?: No - Have you ever felt the nee d to drink first thing in the morning to steady your nerves or to get rid of a hangover?: No - How often do you exercise?: Never phys ical activity - How vigorously can you exercise?: Mini santiago - How often do you use seatbelts?: Alway s - In the past month, how often have you had sex?: __ - Do you have any significan t difficulties or dysfunction during sex?: No, never - How many partners do you have?: __ - How often do you experience pain with sex?: Never - How often do you use condoms during se x?: Always MENTAL HEALTH ASSESSMENT: - - In the past two weeks, how often have you felt depressed, down or hopeless?: Never - In the past month, how oft en have you felt anxious or stressed?: Never - What is your average level of daily st ress?: None - In the past two weeks, how often have you felt a lack of pleasure or interest in doing things?: Never - In the past two weeks, how often have you had difficulty falling asleep or episodes of sleeping too long?: Never - In the past two weeks, how often have you had a lack of energy?: Never - In the past two weeks, how often have you had feelings of being better off or thoughts of harming yourself?: Never - Have you ever attempted to harm yourse lf?: No GENERAL HEALTH/PAIN ASSESSMENT: - - In the past month, how often did you e xperience pain?: Never - In the past month, how muc h has pain affected your ability to work?: Not at all - In the past month, how muc h has pain affected your ability to walk?: Not at all - In the past month, how muc h has pain affected your relationship with other people?: Not at all - On a scale of 1-10, how ba d would you rate your average daily pain?: No pain - How would you describe the ease with which you can prepare your own food?: Very easy - How would you describe the ease with which you can bathe or clean yourself?: Very easy - How would you describe the ease with which you can dress yourself?: Very easy - How hard is it to use the toilet by yourself?: Not hard at all - How would you describe the ease with which you can do your own shopping?: Very easy - How would you describe the ease with which you can get around your house?: Very easy - How would you describe you r ability to pay your bills?: Very good - How would you describe you r ability to plan your daily and monthly budgets?: Very good - How would you describe you r ability to do routine housework?: Very good HOME SAFETY/ASSISTANCE: - - Do you feel like you are safe in your current home?: Yes - How many times have you fallen in your home?: Never - How much would you need to change your living circumstances to feel safe?: Not at all - Do you feel that living so mewhere else would be good for you?: No - How much help do you feel you need at home?: None at all - How much does your family help with daily or routine chores?: Not at all Immunization Status addressed -: Yes Vision Screening -: No Depression Screening -: No Hearing Screening -: No Fall Risk and Home Safety -: Negative, n o falls in the past year, no difficulty walking, or getting out of bed or chair Medication evaluation and reconcilliatio n performed: Yes Vision screening recommended: Yes Literature offered to the patient: Yes Referrals: physical therapy offered for gait balance and mobility evaluation, fall prevention home evauation offered, DEXA screening offered Get Up and Go Evaluation: under 20 secon ds Psychosocial Risks -: No overt psychoso cial risks shown, observed, or mentioned Behavioral Risks -: Patient seems priyanka y well adjusted and no behavorial issues noted Activities of daily living -: Not impaired Cognitive Screening -: No overt cognitiv e deficiency is apparent by direct observation Patient Care Team - No Providers on Record Examination Category Sub-Category Detail Notes Category Not es General Examination GENERAL APPEARANCE: Well dev eloped, well nourished, in no acute distress HEAD: Normocephalic, atrau matic EYES: Pupils equal, round, reactive to light and accommodation, sclera non-icteric EARS: Normal THROAT: Clear NECK/THYROID: Neck supple, full ra nge of motion, no cervical lymphadenopathy HEART: Normal LUNGS: Normal ABDOMEN: Soft, nontender, non distended, bowel sounds present, normal NEUROLOGIC: Nonfocal, appropriat e motor strength normal upper and lower extremities, sensory exam intact SKIN: Warm and dry, no mable picious lesions. 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
--- OUTSIDE RECORDS SUMMARY | 2024-02-25 09:14 | XMS_ITS ---
Author Organization [facility] Address [address] [place] [address] Care Team Providers Care Telehealth Case Manager Name Role Phone SIENA ALBERT Primary Care Provider REASON FOR VISIT (Waiting Records from [place]) Encounters Encounter Location Date Provider Diagnosis [address] [place] [address] 01/13/2024 SIENA ALBERT Plan Of Treatment Next Appt Details Provider Name:SIENA ALBERT , 01/15/2025 08:00:00 AM, [address] [facility] [address], [place], [address], Progress Notes * PB DISLA PDOB:1950 (73 yo M)Acc No.[id number]:01/13/2024 Patient:?PB DISLA :1950???Age:73 Y???Sex:Male Address:[place] [address] * true * Date:? Generated for Printi ng/Fasaraig/eTransmitting on:?02/25/2024 09:13 AM EST
--- OUTSIDE RECORDS SUMMARY | 2024-02-25 09:14 | XMS_ITS ---
Author Organization [facility] Address [address] [place] [address] Care Team Providers Care Buyers' Agent Name Role Phone SIENA ALBERT Primary Care Provider [phone] REASON FOR VISIT Lab Order Encounters Encounter Location Date Provider Diagnosis [facility] [address] [place] [address] 01/27/2024 SIENA ALBERT Mixed hyperlipidemia E78.2 Assessments Encounter Date Diagnosis (ICD Code) Assessment Notes Treatment Notes Treatment Clinical Notes Section Notes 01/27/2024 Mixed hyperlipidemia (ICD-10 - E78.2) Plan Of Treatment Pending Test Test Name Order Date Lipid Panel-[id number] 01/27/2024 Next Appt Details Provider Name:SIENA ALBERT , 01/15/2025 08:00:00 AM, [address] [place] [address] [address], [place], [address], Progress Notes * PB DISLA PDOB:1950 (73 yo M)Acc No.[id number]:01/27/2024 Patient:?PB DISLA :1950???Age:73 Y???Sex:Male Address:[place] [address] Subjective: * Chief Complaints: * ???Lab Order * Medical History:? * Surgical History:? * Hospitalization/Major Diagno stic Procedure:? * Medications:? Objective: * Vitals:? * Physical Examination:? Assessment: * Assessment: 1.?Mixed hyperlipidemia - E7 8.2??? Plan: * Treatment: * Procedure Codes:? * true * Date:? Generated for Xin upton/Jleani/[place] on:?02/25/2024 09:13 AM EST
--- OUTSIDE RECORDS SUMMARY | 2024-02-25 09:14 | XMS_ITS | Patient Health Record ---
Author Organization [facility] Address [address] [place] [address] Care Team Providers Care Upper Marker Name Role Phone SIENA ALBERT Primary Care Provider Allergies No Known Allergies Results Component Value Reference Range Notes Hemoglobin [id number] Reviewed date:01/21/2024 07:38:10 AM Interpretation: Performing Lab:[facility], [address] [place] [address], Phone - [phone], Director - Alfredo Notes/Report: Hemoglobin A1c 5.8 4.8-5.6 % . Prediabetes: 5.7 - 6.4 Diabetes: >6.4 Glycemic control for adults with diabetes: <7.0 Lipid Panel-[id number] Reviewed date:01/27/2024 01:55:53 PM Interpretation: Performing Lab:[facility], [address] [facility], Phone - [phone], Director - Alfredo Notes/Report: Cholesterol, Total 228 100-199 mg/dL Triglycerides 46 0-149 mg/dL HDL Cholesterol 72 >39 mg/dL VLDL Cholesterol [place] 8 5-40 mg/dL LDL Chol Calc (NIH) 148 0-99 mg/dL Comp. Metabolic Panel ([id number] Reviewed date:01/21/2024 07:38:14 AM Interpretation: Performing Lab:[email or web address], [facility], Phone - [phone], Director - Alfredo Notes/Report: Glucose 91 70-99 mg/dL BUN 18 8-27 mg/dL Creatinine 1.10 0.76-1.27 mg/dL eGFR 71 >59 mL/min/1.73 BUN/Creatinine Ratio 16 10-24 Sodium 143 134-144 mmol/L Potassium 4.6 3.5-5.2 mmol/L Chloride 107 96-106 mmol/L Carbon Dioxide, Total 20 20-29 mmol/L Calcium 9.5 8.6-10.2 mg/dL Protein, Total 6.2 6.0-8.5 g/dL Albumin 4.1 3.8-4.8 g/dL Globulin, Total 2.1 1.5-4.5 g/dL Bilirubin, Total 0.5 0.0-1.2 mg/dL Alkaline Phosphatase 53 44-121 IU/L AST (SGOT) 21 0-40 IU/L ALT (SGPT) 11 0-44 IU/L Reason For Referral No Information Medications Medication SIG (Take, Route, Frequency, Duration) [...] the moring, 3 in the evening Active Immunizations Vaccine Route Administration Date Status Comme nts COVID Moderna Unknown 06/26/2020 Administered Social History Tobacco Use: Social History Observation [...] Never (0 point) Points 4 Interpretation Positive Problems Problem Type SNOMED Code ICD Code Onset Dates Problem Status W/U Status Risk Notes Problem Mixed hyperlipidemia (162543916) Mixed hyperlipidemia (E78.2) Active confirmed Problem Generalized anxiety disorder (75194602) Generalized anxiety disorder (F41.1) Active confirmed Problem Insomnia (556663974) Insomnia, unspecified (G47.00) Active confirmed Problem Impaired fasting glucose (536748551) Impaired fasting glucose (R73.01) Active confirmed Problem Lower urinary tract symptoms due to benign prostatic hypertrophy (68253223620931) Benign prostatic hyperplasia with lower urinary tract symptoms (N40.1) Active confirmed Vital Signs Heart Rate 56 /min 01/13/2024 Temperature 97.7 degrees Fahrenheit 01/13/2024 Blood pressure diastolic 70 mm Hg 01/13/2024 Oximetry 97 % 01/13/2024 Height 70 in 01/13/2024 Blood pressure systolic 123 mm Hg 01/13/2024 Weight 181.6 lbs 01/13/2024 BMI 26.05 kg/m2 01/13/2024 Encounters Encounter Location Date Provider Diagnosis [address] [place] [address] 01/13/2024 [facility] Encounter for [facility] adult medical examination without abnormal findings Z00.00 ; Mixed hyperlipidemia E78.2 ; Benign prostatic hyperplasia with lower urinary tract symptoms N40.1 and Impaired fasting glucose R73.[address] [address] 10/05/[address] [address] 01/13/[address] [address] 01/27/2024 [facility] Mixed hyperlipidemia E78.2 Assessments Encounter Date Diagnosis [...] loss advised. Eye screening. He sees his animal rescuer regularly. Dental screening. He sees dentist regularly. Skin screening. No skin issues at this point. Colon cancer screening. He is up to date on his colonoscopy. Immunizations. Declines vaccines. Advance directive. He is on full code and his HCP is Scar Vázquez Blood work ordered Screening blood work before next appointment. General health concerns discussed with patient. 01/27/2024 Mixed hyperlipidemia (ICD-10 - E78.2) 01/13/2024 Mixed hyperlipidemia (ICD-10 - E78.2) Mr. [...] loss advised. Eye screening. He sees his animal rescuer regularly. Dental screening. He sees dentist regularly. [...] loss advised. Eye screening. He sees his animal rescuer regularly. Dental screening. He sees dentist regularly. [...] loss advised. Eye screening. He sees his animal rescuer regularly. Dental screening. He sees dentist regularly. Skin screening. No skin issues at this point. Colon cancer screening. He is up to date on his colonoscopy. Immunizations. Declines vaccines. Advance directive. He is on full code and his HCP is Scar Vázquez Blood work ordered Screening blood work before next appointment. General health concerns discussed with patient. Plan Of Treatment Pending Test Test Name Order Date GLUCOSE 01/19/2022 GLUCOSE 01/21/2023 HEMOGLOBIN A1C WITH EST GLUCOSE 01/20/20 22 Lipid Panel-[id number] 01/27/2024 Future Test Test Name Order Date HEMOGLOBIN A1C WITH EST GLUCOSE 01/20/20 23 Next Appt Details Provider Name:SIENA ALBERT , 01/15/2025 08:00:00 AM, [address] [place] [address], [address], Insurance Providers Payer Name Payer Address Payer Phone Subscriber Number Group Number Insured Name Patient Relationship to Insured Coverage Start Date Coverage End Date [facility] [address] [place] [address] [id number] PB DISLA Self - patient is the insured Medical (General) History Medical History History ICD Code Anxiety disorder/Night mare hyperlipidemia insomnia BPH colon polyp Surgical History Surgery Date(Month/Year) appendectomy Rt Ankle surgery cyst removed abdomen Hospitalization History Reason Date(Month/Year) surgery
== END 2024-02-25 11:24 | disposition home or self-care (01) ==
LOC: HO.HUSH 09:11
PROVIDERS: PCP Hospitalist; Visit Provider Urology
DX: N32.0 Bladder-neck obstruction (principal); R97.20 Elevated prostate specific antigen [PSA]
CPT/HCPCS: 99213